=== PATIENT | female | born 1985 | race Caucasian/White ===

== ENCOUNTER → 2020-09-12 | Outpatient (CLI) | payer OTHER ==
[~2020-09-12] VITALS: Ht 157.5 cm; Wt 113.4 kg
[~2020-09-12] MED LIST: DOXYCYCLINE HY100 MG PO
== END ==
LOC: OPSV 14:10
DX: D50.9 Iron deficiency anemia, unspecified (principal)
CPT/HCPCS: 96365; J1439; J7030

== ENCOUNTER → 2020-11-13 | Outpatient (CLI) | payer OTHER | LOC: HEART 5 08:00 | DX: I34.1 Nonrheumatic mitral (valve) prolapse (principal); R00.2 Palpitations; I34.0 Nonrheumatic mitral (valve) insufficiency | CPT/HCPCS: 93306 ==

== ENCOUNTER → 2022-03-20 | Outpatient (CLI) | payer OTHER, BC | LOC: KOH-I 10:41 | DX: M54.2 Cervicalgia (principal) | CPT/HCPCS: 72040 ==

== ENCOUNTER → 2022-04-10 | Outpatient (CLI) | payer OTHER, BC | LOC: EMI 08:00 | DX: M54.2 Cervicalgia (principal) | CPT/HCPCS: 72141 ==